=== PATIENT | female | born 1960 | race Caucasian/White ===

== ENCOUNTER 2019-05-01 02:34 | Emergency (ER) | payer OTHER, SELFPAY ==
[2019-05-01] MEDS ORDERED: ONDANSETRON 4 MG/2 ML VIAL ONE ×2 (03:00→03:03)
[2019-05-01] MEDS ORDERED: NA CHLORIDE 0.9% 0 ML ONE (03:00)
[2019-05-01] MEDS ORDERED: KETOROLAC 30 MG/ML INJ ONE ×2 (03:00→03:03)
[2019-05-01] MEDS ORDERED: NA CHLORIDE 0.9% 1,000 ML ONE (03:04)
[2019-05-01 03:25] LABS: Absolute Lymphocytes (CBC) 2.3 K/uL (0.7-4.9); Basophils % 0.4 % (0-1.3); Hematocrit 45.7 % (36.0-45.0); Lymphocytes % 16.1 % (15.3-44.8); MPV 9.3 fL (7.6-11.3); RBC Red Blood Cell Count 5.44 M/uL (3.86-4.86)
[2019-05-01 03:33] LABS: Albumin 4.3 g/dL (3.4-5.0); Bilirubin Total 0.4 mg/dL (0.2-1.0); Potassium 4.9 mmol/L (3.5-5.1)
--- NOTE | 2019-05-01 05:45 | EDPHYS ---
Physician Documentation [facility] Name: Carolina Chen Age: 58 yrs Sex: Female : 1960 Arrival Date: 05/01/2019 Time: 02:39 Bed 5 Private MD: ED Physician Ron Emmanuel HPI: 05/01 05:45 This 58 yrs old Female presents to ER via Ambulatory with complaints of Back ps1 Pain, Nausea. 05:45 Patient presenting with left flank pain. Radiating to groin. Rated as moderate. No hx ps1 of stones. Changed diet recently. Associated with nausea. Mild dysuria. No fever. Hx of HTN, liver disease and pericardial cyst. Historical: - Allergies: 03:00 Floxin; aa1 - Home Meds: 03:00 metoprolol tartrate 25 mg Oral tab 1 tab once daily [Active]; aa1 - PMHx: 03:00 PVCs; liver disease; aa1 - PSHx: 03:00 Hysterectomy; aa1 - Immunization history:: Flu vaccine is not up to date. - Social history:: Smoking status: Patient/guardian denies using tobacco. - Ebola Screening: : No symptoms or risks identified at this time. ROS: 05:45 Constitutional: Negative for fever, chills, and weight loss, Eyes: Negative for injury, ps1 pain, redness, and discharge, Cardiovascular: Negative for chest pain, palpitations, and edema, Respiratory: Negative for shortness of breath, cough, wheezing, and pleuritic chest pain, MS/Extremity: Negative for injury and deformity, Skin: Negative for injury, rash, and discoloration, Neuro: Negative for headache, weakness, numbness, tingling, and seizure. 05:45 Abdomen/GI: Positive for nausea and vomiting. 05:45 : Positive for urinary symptoms, flank pain. Exam: 05:45 Constitutional: This is a well developed, well nourished patient who is awake, alert, ps1 and in no acute distress. Head/Face: Normocephalic, atraumatic. Eyes: Pupils equal round and reactive to light, extra-ocular motions intact. Lids and lashes normal. Conjunctiva and sclera are non-icteric and not injected. Chest/axilla: Normal chest wall appearance and motion. Nontender with no deformity. No lesions are appreciated. Cardiovascular: Regular rate and rhythm. No gallops, murmurs, or rubs. Normal PMI, no JVD. No pulse deficits. Respiratory: Lungs have equal breath sounds bilaterally, clear to auscultation and percussion. No rales, rhonchi or wheezes noted. No increased work of breathing, no retractions or nasal flaring. Abdomen/GI: Soft, non-tender, with normal bowel sounds. No distension or tympany. No guarding or rebound. No evidence of tenderness throughout. Skin: Warm, dry with normal turgor. Normal color with no rashes, no lesions, and no evidence of cellulitis. MS/ Extremity: Pulses equal, no cyanosis. Neurovascular intact. Full, normal range of motion. Neuro: Awake and alert, GCS 15, oriented to person, place, time, and situation. Cranial nerves II-XII grossly intact. Sensory grossly intact. Vital Signs: 02:47 BP 144 / 75; Pulse 72; Resp 20; Temp 97.0; Pulse Ox 99% on R/A; Weight 97.52 kg; Height aa1 5 ft. 10 in. (177.80 cm); Pain 10/10; 04:00 BP 110 / 54; Pulse 75; Resp 17; Pulse Ox 98% ; Pain 0/10; rr5 05:00 BP 111 / 61; Pulse 79; Resp 17; Pulse Ox 98% ; rr5 06:10 BP 115 / 65; Pulse 72; Resp 16; Temp 97.9; Pulse Ox 99% ; rr5 02:47 Body Mass Index 30.85 (97.52 kg, 177.80 cm) aa1 MDM: 03:31 Patient medically screened. ps1 05:48 Data reviewed: vital signs, nurses notes, lab test result(s), radiologic studies, and ps1 as a result, I will discharge patient. Counseling: I had a detailed discussion with the patient and/or guardian regarding: the historical points, exam findings, and any diagnostic results supporting the discharge/admit diagnosis, lab results, radiology results, the need for outpatient follow up, to return to the emergency department if symptoms worsen or persist or if there are any questions or concerns that arise at home. ED course: imaging c/w recently passed stone. Patient is pain free. Will have patient fu with Dr. Flores, reasons to return discussed with patient. . 05/01 02:55 Order name: CBC with Diff; Complete Time: 03:34 aa1 05/01 02:55 Order name: CMP; Complete Time: 03:34 aa1 05/01 02:55 Order name: CT Stone Protocol aa1 05/01 03:14 Order name: Urine Dipstick--Ancillary (enter results); Complete Time: 06:09 mw2 05/01 05:09 Order name: Urine Microscopic Only; Complete Time: 06:09 rr5 05/01 02:55 Order name: Urine Dipstick-Ancillary (obtain specimen); Complete Time: 03:13 aa1 Administered Medications: 03:05 Drug: NS 0.9% 1000 ml Route: IV; Rate: 1 bolus; Site: right antecubital; rr5 04:30 Follow up: Response: No adverse reaction; IV Status: Completed infusion; IV Intake: rr5 1000ml 03:06 Drug: Zofran 4 mg Route: IVP; Site: right antecubital; rr5 04:10 Follow up: Response: No adverse reaction rr5 03:08 Drug: TORadol 30 mg Route: IVP; Site: right antecubital; rr5 04:10 Follow up: Response: No adverse reaction rr5 Disposition: 05/01/19 05:45 Discharged to Home. Impression: Unspecified renal colic, Pericardial cyst. - Condition is Stable. - Discharge Instructions: Kidney Stones, Renal Colic. - Prescriptions for Anaprox DS 550 mg Oral Tablet - take 1 tablet by ORAL route every 12 hours As needed; 20 tablet. Zofran 4 mg Oral Tablet - take 1 tablet by ORAL route every 12 hours As needed; 20 tablet. - Medication Reconciliation Form, Thank You Letter, Antibiotic Education, Prescription Opioid Use form. - Follow up: Cecilia Flores MD; When: 48 Hours; Reason: Recheck today's complaints, Continuance of care, Re-evaluation by your physician. Follow up: Emergency Department; When: As needed; Reason: Fever > 102 F, Worsening of condition. - Problem is new. - Symptoms are resolved. Signatures: Dispatcher [employer] EDMS Jessica Brady RN RN aa1 Ron Emmanuel MD MD ps1 Roque, Raymond, RN RN rr5 Corrections: (The following items were deleted from the chart) 06:34 05:45 05/01/2019 05:45 Discharged to Home. Impression: Unspecified renal colic; rr5 Pericardial cyst. Condition is Stable. Forms are Medication Reconciliation Form, Thank You Letter, Antibiotic Education, Prescription Opioid Use. Follow up: Cecilia Flores; When: 48 Hours; Reason: Recheck today's complaints, Continuance of care, Re-evaluation by your physician. Follow up: Emergency Department; When: As needed; Reason: Fever > 102 F, Worsening of condition. Problem is new. Symptoms are resolved. ps1
--- NOTE | 2019-05-01 05:45 | ER ---
Nurse's Notes [facility] Name: Carolina Chen Age: 58 yrs Sex: Female : 1960 Arrival Date: 05/01/2019 Time: 02:39 Bed 5 Private MD: Diagnosis: Unspecified renal colic;Pericardial cyst Presentation: 05/01 02:47 Presenting complaint: Patient states: sudden onset L low back pain which radiates to aa1 LLQ w/nausea x 2 hrs. Transition of care: patient was not received from another setting of care. Onset of symptoms was May 01, 2019 at 00:30. Risk Assessment: Do you want to hurt yourself or someone else? Patient reports no desire to harm self or others. Initial Sepsis Screen: Does the patient meet any 2 criteria? No. Patient's initial sepsis screen is negative. Does the patient have a suspected source of infection? No. Patient's initial sepsis screen is negative. Care prior to arrival: None. 02:47 Method Of Arrival: Ambulatory aa1 02:47 Acuity: NAGI 3 aa1 Triage Assessment: 02:47 General: Appears in no apparent distress. uncomfortable, Behavior is calm, cooperative, aa1 appropriate for age. Historical: - Allergies: 03:00 Floxin; aa1 - Home Meds: 03:00 metoprolol tartrate 25 mg Oral tab 1 tab once daily [Active]; aa1 - PMHx: 03:00 PVCs; liver disease; aa1 - PSHx: 03:00 Hysterectomy; aa1 - Immunization history:: Flu vaccine is not up to date. - Social history:: Smoking status: Patient/guardian denies using tobacco. - Ebola Screening: : No symptoms or risks identified at this time. Screenin:00 Abuse screen: Denies threats or abuse. Denies injuries from another. Nutritional rr5 screening: No deficits noted. Tuberculosis screening: No symptoms or risk factors identified. Fall Risk IV access (20 points). Total Fernandez Fall Scale indicates No Risk (0-24 pts). Assessment: 02:47 General: Appears in no apparent distress. uncomfortable, Behavior is calm, cooperative, rr5 appropriate for age. 02:47 Pain: Complains of pain in left flank Pain radiates to pelvis Pain currently is 10 out rr5 of 10 on a pain scale. Quality of pain is described as aching, dull, Pain began gradually, Is intermittent. Neuro: Level of Consciousness is awake, alert, obeys commands, Oriented to person, place, time, situation, Appropriate for age. Cardiovascular: Capillary refill < 3 seconds Patient's skin is warm and dry. Respiratory: Airway is patent Respiratory effort is even, unlabored, Respiratory pattern is regular, symmetrical. GI: Reports nausea, vomiting. : Reports pain in left flank(s), lower quadrant(s). EENT: No signs and/or symptoms were reported regarding the EENT system. Derm: Skin is intact, Skin temperature is warm. Musculoskeletal: Circulation, motion, and sensation intact. Capillary refill < 3 seconds. 04:00 Reassessment: Patient appears in no apparent distress at this time. Patient is alert, rr5 oriented x 3, equal unlabored respirations, skin warm/dry/pink. Patient denies pain at this time. Patient states feeling better. 04:56 Reassessment: Patient appears in no apparent distress at this time. awaiting for CT rr5 result. no complaints made. Patient denies pain at this time. Patient states feeling better. Patient states symptoms have improved. 05:42 Reassessment: Patient appears in no apparent distress at this time. Patient is alert, rr5 oriented x 3, equal unlabored respirations, skin warm/dry/pink. went to restroom. Patient denies pain at this time. Patient states feeling better. Patient states symptoms have improved. 06:25 Reassessment: Patient appears in no apparent distress at this time. Patient is alert, rr5 oriented x 3, equal unlabored respirations, skin warm/dry/pink. discharge instruction given and explained without complaints made, verbalized understanding. Vital Signs: 02:47 BP 144 / 75; Pulse 72; Resp 20; Temp 97.0; Pulse Ox 99% on R/A; Weight 97.52 kg; Height aa1 5 ft. 10 in. (177.80 cm); Pain 10/10; 04:00 BP 110 / 54; Pulse 75; Resp 17; Pulse Ox 98% ; Pain 0/10; rr5 05:00 BP 111 / 61; Pulse 79; Resp 17; Pulse Ox 98% ; rr5 06:10 BP 115 / 65; Pulse 72; Resp 16; Temp 97.9; Pulse Ox 99% ; rr5 02:47 Body Mass Index 30.85 (97.52 kg, 177.80 cm) aa1 ED Course: 02:39 Patient arrived in ED. ag3 02:47 Arm band placed on right wrist. Patient placed in an exam room, on a stretcher. aa1 02:53 Ron Emmanuel MD is Attending Physician. ps1 02:58 Pratik Collier, ADI is Primary Nurse. rr5 02:58 Triage completed. aa1 03:05 Inserted saline lock: 20 gauge in right antecubital area, using aseptic technique. rr5 Blood collected. 03:52 CT completed. Patient tolerated procedure well. Patient moved to CT via stretcher. Patient moved back from CT. 03:57 CT Stone Protocol In Process Unspecified. EDMS 05:44 Cecilia Flores MD is Referral Physician. ps1 Administered Medications: 03:05 Drug: NS 0.9% 1000 ml Route: IV; Rate: 1 bolus; Site: right antecubital; rr5 04:30 Follow up: Response: No adverse reaction; IV Status: Completed infusion; IV Intake: rr5 1000ml 03:06 Drug: Zofran 4 mg Route: IVP; Site: right antecubital; rr5 04:10 Follow up: Response: No adverse reaction rr5 03:08 Drug: TORadol 30 mg Route: IVP; Site: right antecubital; rr5 04:10 Follow up: Response: No adverse reaction rr5 Intake: 04:30 IV: 1000ml; Total: 1000ml. rr5 Outcome: 05:45 Discharge ordered by . ps1 06:34 Patient left the ED. rr5 Signatures: Dispatcher [employer] EDMS Jessica Brady, RN RN aa1 Jabari Sen Ron Emmanuel MD MD ps1 Adrianne Cook ag3 Pratik Collier, ADI RN rr5
[2019-05-01 06:07] LABS: Calcium Oxalate Crystals- Ur FEW (NONE SEEN); Urine Bacteria <20 /HPF (<20); Urine Culture Reflex Order NOT NEEDED; Urine RBC <5 /HPF (NONE SEEN)
[2019-05-01 06:08] LABS: Urine Blood NEGATIVE (NEG); Urine Glucose NEGATIVE (NEG); Urine Protein NEGATIVE (NEG); Urine Specific Gravity >1.030 (1.005-1.030); Urine pH 5.5 (5.0-7.0)
[2019-05-01 06:44] VITALS: BP 115/65; TEMP 97.9; O2SAT 99
--- NOTE | 2019-05-01 09:58 | RAD REPORT ---
EXAM DESCRIPTION: CT abdomen and pelvis without intravenous contrast CLINICAL HISTORY: 58-year-old female with left lower flank pain and nausea CLINICAL HISTORY: Axial CT imaging of the abdomen and pelvis was performed. Sagittal and coronal r econstructed images were then performed. The CT study is performed according to ALARA (as low as reas onably achievable) or ALARA/IMAGE GENTLY, with automatic adjustment of mA and/or kV according to nuha ent size. Performed on: 05/01/2019 at 3:52 AM COMPARISON: None. FINDINGS: Lung bases: The lung bases are grossly clear. There is a sharply marginated cystic mass in the right cardiophrenic sulcus likely representing a pericardial cyst. This measures approximately 3 .3 x 2.6 cm in cross-sectional diameter by 4 cm in craniocaudal dimension. Liver: The liver is mildly enlarged and measures 19 cm in craniocaudal dimension. No focal hepatic ab normalities are appreciated on this unenhanced scan. Liver attenuation is within normal limits. Spleen: The spleen is normal is size, configuration and attenuation. No focal splenic abnormalities a re appreciated on this unenhanced scan. Gallbladder and bile duct: The gallbladder is well distended and is grossly unremarkable. There are a couple of questionable punctate areas of increased attenuation within the gallbladder lumen which could represent small stones. There is no biliary ductal dilatation. Pancreas: The pancreas is grossly normal in size and configuration. Adrenal Glands: The adrenal glands are normal in size and configuration. Kidneys: The kidneys are normal in size and configuration. There is mild fullness of the left renal c ollecting system and there is very mild perinephric inflammation surrounding the renal pelvis. There is no evidence of nephrolithiasis. No focal renal abnormalities are identified. Stomach: The stomach is grossly normal. There is no definite hiatal hernia. Bowel: The bowel gas pattern is non specific and non obstructive. Appendix: The appendix is not well visualized on this examination. There is no CT evidence to suggest acute appendicitis. Free air: There is no evidence of free air. Free fluid: There is no evidence of free fluid. Vasculature: The aorta is normal in caliber and contour. The inferior vena cava is grossly unremarkab le. Lymphadenopathy: No pathologic lymphadenopathy is identified. Bladder: The bladder is partially distended and smooth in contour. Reproductive: The uterus is surgically absent. Bones: No acute osseous abnormalities are identified. Soft tissues: No focal soft tissue abnormalities are identified. IMPRESSION: 1. No evidence of acute intra-abdominal or intrapelvic pathology.. 2. Sharply marginated cystic mass in the right cardiophrenic sulcus likely representing a pericardial cyst measuring approximately 3.3 x 2.6 x 4.0 cm. 3. Mild fullness of the left renal collecting system with mild perinephric inflammation. There is no evidence of nephrolithiasis or ureterolithiasis. Evaluation of pyelonephritis is limited without intr avenous contrast. A recently passed stone could result in this appearance. 4. Mild hepatomegaly. 5. Questionable cholelithiasis. 6. Remote hysterectomy. Electronically signed by: Roxann Perez DO 05/01/2019 4:30 AM CDT Due to temporary technical issues with the PACS/Fluency reporting system, reports are being signed by the in house radiologist as a courtesy to ensure prompt reporting. The interpreting radiologist is f ully responsible for the content of the report.
== END 2019-05-01 06:34 | disposition home or self-care (01) ==
LOC: ER 02:34
DX: N23 Unspecified renal colic (principal); Q24.8 Other specified congenital malformations of heart; Z88.8 Allergy status to other drugs, medicaments and biological substances
CPT/HCPCS: 36415; 74176; 76377; 80053; 81003; 81015; 85025; 96361; 96374; 96375; 99284; J2405; J7030